=== PATIENT | male | born 1995 | race Caucasian/White ===

== ENCOUNTER 2024-04-24 16:55 | Emergency (ER) | payer OTHER ==
[~2024-04-24] VITALS: Ht 162.6 cm; Wt 55.0 kg
[2024-04-24 16:57] VITALS: TEMP 36.7; O2SAT 100
[2024-04-24 20:23] LABS: HEMATOCRIT. 47.3 % (42.0-52.0); HEMOGLOBIN. 15.7 g/dL (14.0-18.0); MEAN CORPUSCULAR HEMOGLOBIN 29.3 pg (28.0-32.0); MEAN CORPUSCULAR HGB CONC 33.2 g/dL (31.0-37.0); MEAN CORPUSCULAR VOLUME 88.2 fL (80.0-94.0); MEAN PLATELET VOLUME 8.2 fl (7.4-10.4); PLATELET 289 x1000/uL (130-400); RED BLOOD CELL COUNT 5.36 mill/uL (4.7-6.1); RED CELL DISTRIBUTION WIDTH 12.3 % (11.6-14.6)
[2024-04-24 20:36] LABS: CHLORIDE 100 mEq/L (98-107); POTASSIUM 3.9 mEq/L (3.5-5.1); SODIUM 138 mEq/L (136-145)
[2024-04-24 20:37] LABS: CARBON DIOXIDE 28 mEq/L (21-32)
[2024-04-24 20:38] LABS: CALCIUM 9.8 mg/dL (8.7-10.4)
[2024-04-24 20:42] LABS: GLUCOSE 179 mg/dL (70-105); UREA NITROGEN BLOOD 16 mg/dL (9-23)
[2024-04-24 20:48] LABS: DIFFERENTIAL COMMENT 1
[2024-04-24 21:04] LABS: ALANINE AMINOTRANSFERASE 57 IU/L (10-49); ALBUMIN 4.6 g/dL (3.2-4.8); ASPARTATE AMINOTRANSFERASE 34 IU/L (<34); BILIRUBIN DIRECT 0.1 mg/dL (<=3.0); BILIRUBIN TOTAL 0.5 mg/dL (0.1-1.0); PROTEIN TOTAL 8.7 g/dL (6.0-8.3)
[2024-04-24 21:16] LABS: PROTHROMBIN TIME 10.6 sec (9.6-11.0)
[2024-04-24 21:47] VITALS: TEMP 98.1
[2024-04-24] MEDS: ACETAMINOPHEN 325MG TABLET PO STA (21:47)
[2024-04-25 00:16] VITALS: BP 131/73; PULSE 69; RESP 16
[2024-04-25] MEDS: KETOROLAC 30MG/ML VIAL IV ONE (00:16)
[2024-04-25 01:02] LABS: PLATELET ESTIMATE NORMAL
[2024-04-25] MEDS ORDERED: MAGNESIUM/ALUMINUM HYDROXIDE/SIMETHICONE 30ML UDC PO PRN (07:00)
[2024-04-25] MEDS ORDERED: ONDANSETRON HCL 4MG/2ML INJ IV PRN (07:00)
[2024-04-25] MEDS ORDERED: KETOROLAC 30MG/ML VIAL IV PRN (07:00)
[2024-04-25] MEDS ORDERED: ACETAMINOPHEN 325MG TABLET PO PRN ×2 (07:00)
[2024-04-25] MEDS ORDERED: PANTOPRAZOLE SODIUM 40 MG/VIAL IV SCH (09:00)
[2024-04-25] MEDS ORDERED: SODIUM CHLORIDE 0.9% 3ML FLUSH IVF SCH (14:00)
== END 2024-04-25 01:24 | disposition short-term general hospital (02) ==
LOC: ER 16:55
DX: R10.84 Generalized abdominal pain (principal); Z86.73 Personal history of transient ischemic attack (TIA), and cerebral infarction without residual deficits
CPT/HCPCS: 99285; 74176; 80076; 80048; 83690; 85025; 85610; 36415; 96374; J1885

== ENCOUNTER 2024-05-18 18:12 | Emergency (ER) | payer OTHER ==
[~2024-05-18] VITALS: Ht 162.6 cm; Wt 69.5 kg
[2024-05-18 18:42] VITALS: O2SAT 97
[2024-05-18 18:53] LABS: BASOPHILS % 0.6 % (0.0-2.0); EOSINOPHILS % 1.2 % (0.0-5.0); HEMATOCRIT. 46.7 % (42.0-52.0); HEMOGLOBIN. 15.1 g/dL (14.0-18.0); LYMPHOCYTES % 15.7 % (20.0-50.0); MEAN CORPUSCULAR HGB CONC 32.3 g/dL (31.0-37.0); MEAN CORPUSCULAR VOLUME 89.8 fL (80.0-94.0); MEAN PLATELET VOLUME 7.5 fl (7.4-10.4); MONOCYTES % 8.6 % (2.0-8.0); NEUTROPHILS % 73.9 % (40.0-76.0); PLATELET 352 x1000/uL (130-400); WHITE BLOOD COUNT 8.8 x1000/uL (4.5-11.0)
[2024-05-18 18:58] LABS: CHLORIDE 103 mEq/L (98-107); POTASSIUM 3.7 mEq/L (3.5-5.1); SODIUM 143 mEq/L (136-145)
[2024-05-18 18:59] LABS: CARBON DIOXIDE 31 mEq/L (21-32)
[2024-05-18 19:04] LABS: CREATININE 0.9 mg/dL (0.6-1.3); GLUCOSE 90 mg/dL (70-105); UREA NITROGEN BLOOD 10 mg/dL (9-23)
[2024-05-18 19:07] VITALS: TEMP 36.8
[2024-05-18] MEDS: LEVETIRACETAM 500MG TABLET PO ONE (20:26)
[2024-05-18] MEDS: ACETAMINOPHEN 325MG TABLET PO ONE (20:54)
[2024-05-18 22:23] VITALS: BP 107/66; PULSE 73; RESP 12; O2SAT 98
== END 2024-05-18 22:25 | disposition home or self-care (01) ==
LOC: ER 18:12
DX: R56.9 Unspecified convulsions (principal); E87.8 Other disorders of electrolyte and fluid balance, not elsewhere classified; Z79.899 Other long term (current) drug therapy; Z86.73 Personal history of transient ischemic attack (TIA), and cerebral infarction without residual deficits
CPT/HCPCS: 36415; 80048; 82542; 85025; 93005; 99284